=== PATIENT | female | born 1965 | race Caucasian/White ===

== ENCOUNTER 2022-11-27 20:29 | Emergency (ER) | payer OTHER ==
--- NOTE | 2022-11-27 20:30 | NUR ---
PATIENT CALLED TO TRIAGE. STATED SHE DOES NOT WANT TO WAIT ALL NIGHT. LEFT WITHOUT BEING TRIAGE OR SEEN.
[2022-11-28] MEDS ORDERED: OLAN5TAB3 PO (15:26)
[2022-11-28] MEDS ORDERED: CEPH500C2 PO (15:30)
== END 2022-11-27 20:54 | disposition left against medical advice (07) ==
LOC: ER 20:32
DX: Z53.21 Procedure and treatment not carried out due to patient leaving prior to being seen by health care provider (principal)

== ENCOUNTER 2022-11-28 08:25 | Emergency (ER) | payer OTHER ==
[~2022-11-28] VITALS: Ht 165.1 cm; Wt 70.3 kg
[2022-11-28 08:36] VITALS: BP 120/67
--- NOTE | 2022-11-28 08:59 | NUR ---
DISABILITY ATTORNEY AT BEDSIDE
[2022-11-28 09:15] LABS: BASOPHILS % (AUTO) 1.1 % (0.0-2.0); EOSINOPHILS % (AUTO) 1.8 % (0.0-6.0); HEMATOCRIT 39 % (33-45); HEMOGLOBIN 12.8 g/dL (11.5-14.8); LYMPHOCYTES # (AUTO) 0.7 K/uL (0.8-4.8); LYMPHOCYTES % (AUTO) 22.8 % (20.0-44.0); MEAN CORPUSCULAR HGB CONC 33 g/dl (31.0-36.0); MEAN CORPUSCULAR VOLUME 86 fL (82-100); MONOCYTES # (AUTO) 0.2 K/uL (0.1-1.30); MONOCYTES % (AUTO) 7.8 % (2.0-12.0); NEUTROPHILS # (AUTO) 2.1 K/uL (1.8-8.9); NEUTROPHILS % (AUTO) 66.5 % (43.0-81.0); PLATELET COUNT (AUTO) 76 K/uL (150-450); RED BLOOD CELL COUNT(AUTO) 4.53 MIL/uL (4.0-5.2); WHITE BLOOD COUNT (AUTO) 3.1 K/uL (4.3-11.0)
--- NOTE | 2022-11-28 09:17 | NUR ---
URINE SAMPLE OBTAINED SENT TO LAB
[2022-11-28 09:37] LABS: CALCIUM, SERUM 9.5 mg/dL (8.5-10.1); CARBON DIOXIDE 31 mmol/L (21-32); CHLORIDE 103 mmol/L (98-107); CREATININE 0.9 mg/dL (0.6-1.3); GLUCOSE 176 mg/dL (74-106); POTASSIUM 4.1 mmol/L (3.5-5.1); SODIUM SERUM 138 mmol/L (136-145); UREA NITROGEN, BLOOD 15 mg/dL (7-18)
[2022-11-28 09:43] LABS: ALANINE AMINOTRANSFERASE 22 U/L (12-78); ALBUMIN 3.9 g/dL (3.4-5.0); ALCOHOL, BLOOD < 3 mg/dL (0-0); ALKALINE PHOSPHATASE 93 U/L (46-116); ASPARTATE AMINOTRANSFERASE 24 U/L (15-37); BILIRUBIN,DIRECT 0.2 mg/dL (0.0-0.2); BILIRUBIN,TOTAL 0.6 mg/dL (0.2-1.0); TOTAL PROTEIN, SERUM 7.2 g/dL (6.4-8.2)
[2022-11-28 09:46] LABS: ACETAMINOPHEN < 10 ug/ml (10-30)
[2022-11-28 10:39] LABS: BILIRUBIN,URINE NEGATIVE (NEGATIVE); COLOR,URINE YELLOW (YELLOW); LEUKOCYTE ESTERASE ,URINE 1+ (NEGATIVE); NITRITE, URINE POSITIVE (NEGATIVE); PH,URINE 5.5 (5.0-8.0); PROTEIN,URINE NEGATIVE (NEGATIVE); UGLUCOSE NEGATIVE (NEGATIVE); UROBILINOGEN,URINE 0.2 EU/dL (0.2)
[2022-11-28 11:01] LABS: RBC,URINE 0-2 /HPF (0-2)
[2022-11-28 11:02] LABS: BACTERIA,URINE Moderate /HPF (None Seen); SQUAMOUS EPITHELIAL CELL,UR Few /HPF (None Seen)
[2022-11-28] MEDS ORDERED: CEPHALEXIN MONOHYDRATE 500 MG CAPSULE PO ONE ×2 (12:00→12:14)
--- NOTE | 2022-11-28 12:10 | NUR ---
CALLED ART, CRISIS IS COMING FOR CONSULT
[2022-11-28 12:21] LABS: NEUTROPHILS % (MANUAL) 60 (42-76)
[2022-11-28 12:22] LABS: BAND % (MANUAL) 2 % (0.0-5.0); EOSINOPHILS % (MANUAL) 1 % (0-4); LYMPHOCYTES % (MANUAL) 28 % (16-48); MONOCYTES % (MANUAL) 9 % (0-11.0)
[2022-11-28] MEDS ORDERED: OLAN5TAB3 PO (15:26)
[2022-11-28] MEDS ORDERED: CEPH500C2 PO (15:30)
--- NOTE | 2022-11-28 15:33 | NUR ---
Patient eloped from facility. ER MD notified.
== END 2022-11-28 15:34 | disposition left against medical advice (07) ==
LOC: ER 08:37
DX: R44.3 Hallucinations, unspecified (principal); R41.82 Altered mental status, unspecified; Z60.2 Problems related to living alone
CPT/HCPCS: 36415; 70450-TC; 80048-TC; 80076-TC; 81001; 85025-TC; 87086-TC; G0480